=== PATIENT | female | born 1960 | race Caucasian/White ===

== ENCOUNTER 2016-08-16 23:13 | Emergency (ER) | payer OTHER ==
[~2016-08-16] VITALS: Ht 157.5 cm; Wt 70.0 kg
[~2016-08-16 23:13] MED LIST: CYCL-36 PO; NAPR-573 PO; NAPR250T57 PO; ONDA4TAB7 PO; SYMB80AE INH; VENTAER INH
[2016-08-16 23:16] VITALS: BP 169/109; PULSE 100; RESP 16; TEMP 97.9; O2SAT 96
[2016-08-16] MEDS ORDERED: RANITIDINE HCL 150 MG TAB PO ONE (23:45)
[2016-08-16] MEDS ORDERED: methylPREDNISolone SOD SUCC 125 MG/2 ML VIAL IV PUSH ONE (23:45)
[2016-08-16] MEDS ORDERED: diphenhydrAMINE HCL 50 MG/ML VIAL IV PUSH ONE (23:45)
[2016-08-16 23:50] VITALS: BP 160/103; PULSE 80; RESP 16; O2SAT 96
[2016-08-17] MEDS ORDERED: FAMOTIDINE 20 MG TAB PO ONE (00:15)
[2016-08-17] MEDS ORDERED: PRED50 PO (02:13)
--- NOTE | 2016-08-17 02:13 | PD ---
HPI Chief Complaint: Allergic/Adverse Reaction Time Seen by Provider: 23:29 Travel History International Travel<30 days: No Contact w/Intl Traveler<30days: No Traveled to known affect area: No History of Present Illness HPI Patient is a 55 year old female complaining of allergic reaction. She says she has hives all over and is very itchy. She denies any SOB or swelling of her lips , tongue or throat. She does not know what is causing the reaction as she has many allergies. She took two benadryl before coming in. PFSH Past Medical History Asthma: Yes (EXERCISED INDUCE ASTHMA) Atrial Fibrillation: Yes Anxiety: Yes Depression: Yes Cancer: No Cardiovascular Problems: Yes (MITRAL VALVE "LITTLE HOLD") High Cholesterol: Yes Diabetes: Yes (HYPOGLYCEMIA) Patient Takes Glucophage: No Diminished Hearing: No Endocrine: Yes Gastrointestinal Disorders: Yes (HEMMROIDS, COLONSCOPY) Genitourinary: Yes (CHRONIC CYCSTITIS) Immune Disorder: No Musculoskeletal: Yes (BACK PROBLEMS) Neurologic: No Psychiatric: Yes Reproductive: Yes Respiratory: Yes Immunizations Current: Yes Thyroid Disease: Yes (GOITER WITH PARTIAL THYROIDECTOMY) Ulcer: Yes (BLADDER) Tetanus Vaccination: < 5 Years Influenza Vaccination: No ?: Not Menopausal: Yes Dilation and Curettage (D&C): Yes Past Surgical History Hysterectomy: Yes Tonsillectomy: Yes Other Surgery: Yes (HALF THYROID / HEMORRHOIDECTOMY) Social History Alcohol Use: Yes (WINE 3-4 TIMES A WEEK) Tobacco Use: Yes (1.5 PPD) Substance Use: No Allergies-Medications (Allergen,Severity, Reaction): Coded Allergies: Ceftin (Verified Allergy, Severe, 08/16/16) Codeine (Verified Allergy, Severe, 08/16/16) Latex (Verified Allergy, Severe, 08/16/16) Lortab (Verified Allergy, Severe, 08/16/16) Tetracyclines (Verified Allergy, Severe, 08/16/16) Ultram (Verified Allergy, Severe, 08/16/16) Reported Meds & Prescriptions Reported Meds & Active Scripts Active Naprosyn (Naproxen) 250 Mg Tab 250 Mg PO BID 5 Days Flexeril (Cyclobenzaprine HCl) 10 Mg Tab 10 Mg PO TID PRN Ondansetron Odt (Ondansetron HCl) 4 Mg Tab 4 Mg PO Q6H PRN Ventolin Hfa (Albuterol Sulfate) 18 Gm Aero 2 Puff INH Q4HPRN Reported Naproxen 375 Mg Tab 375 Mg PO Q12 Symbicort (Budesonide/Formoterol Fumarate) 80 Mcg/4.5 Mcg Aer 2 Puff INH ONCE * SHAKE WELL BEFORE USE * Review of Systems General / Constitutional: No: Fever, Chills Eyes: No: Blurred Vision HENT: No: Headaches, Lightheadedness Cardiovascular: No: Chest Pain or Discomfort Respiratory: No: Shortness of Breath Gastrointestinal: No: Nausea, Vomiting Skin: Positive Rash, Positive Itching Neurologic: No: Weakness Physical Exam Narrative GENERAL: Awake and alert, in no acute distress SKIN: Warm and dry. urticaria covering most of the arms, legs, and trunk. HEAD: Atraumatic. Normocephalic. EYES: Pupils equal and round. No scleral icterus. ENT: Mucous membranes pink and moist. No pharyngeal swelling, no tongue swelling, no uvular swelling. NECK: Trachea midline. No JVD. CARDIOVASCULAR: Regular rate and rhythm. No murmur appreciated. RESPIRATORY: No accessory muscle use. Clear to auscultation. Breath sounds equal bilaterally. NEUROLOGICAL: Awake and alert. No obvious cranial nerve deficits. Motor grossly within normal limits. Normal speech. Data Data Last Documented VS Vital Signs Date Time Temp Pulse Resp B/P Pulse Ox O2 Delivery O2 Flow Rate FiO2 08/16/16 23:50 80 16 160/103 96 Room Air 08/16/16 23:16 97.9 Orders Iv Access Insert/Monitor (08/16/16 23:34) Diphenhydramine Inj (Benadryl Inj) (08/16/16 23:45) Methylprednisolone So Succ Inj (Solumedr (08/16/16 23:45) Famotidine (Pepcid) (08/17/16 00:15) MDM Medical Decision Making Medical Screen Exam Complete: Yes Emergency Medical Condition: Yes Differential Diagnosis allergic reaction vs dermatitis vs urticaria Narrative Course Patient is a 55 year old female who comes in complaining of allergic reaction. Exam shows hives over most of the body. There is no airway compromise. Patient given solumedrol, benadryl, zantac. Observed in the ED with improvement of symptoms. Discharged home with prescription for Prednisone. Advised to return to the ED as needed for any worsening symptoms, especially any airway issues. Diagnosis Primary Impression: Allergic reaction Qualified Code: T78.40XA - Allergic reaction, initial encounter Patient Instructions: General Allergic Reaction (ED), General Instructions Additional Instructions: Take the Prednisone for the next 3 days. Take Benadryl as needed for itching. Return to the ED as needed for any worsening symptoms. Scripts Prednisone 50 Mg Tab50 Mg PO DAILY #3 TAB Ref 0 Prov:Ellen Sheth MD 08/17/16 Disposition: 01 DISCHARGE HOME Condition: Stable Ellen Sheth MD Aug 17, 2016 02:13
[2016-08-17 03:10] VITALS: BP 131/81; PULSE 83; RESP 16; O2SAT 99
== END 2016-08-17 03:18 | disposition home or self-care (01) ==
LOC: NEPC 23:13
DX: T78.40XA Allergy, unspecified, initial encounter (principal)
CPT/HCPCS: 96374; 96375; 99283; J1200; J2930

== ENCOUNTER 2017-08-14 19:15 | Emergency (ER) | payer SELFPAY ==
[~2017-08-14] VITALS: Ht 172.7 cm; Wt 68.0 kg
[~2017-08-14 19:15] MED LIST changes: +PRED50 PO
[2017-08-14 19:16] VITALS: BP 160/104; PULSE 95; RESP 16; TEMP 98.7; O2SAT 97
--- NOTE | 2017-08-14 20:17 | RADRPT ---
EXAM DATE/TIME: 08/14/2017 20:03 [facility] COMPARISON: No previous studies available for comparison. INDICATIONS : Chest pain. MEDICAL HISTORY : A-fib. SURGICAL HISTORY : Coronary artery stent. ENCOUNTER: Initial ACUITY: 1 day PAIN SCORE: 9/10 LOCATION: middle chest. FINDINGS: PA and lateral views of the chest demonstrate the lungs to be symmetrically aerated without evidence of mass, infiltrate or effusion. The cardiomediastinal contours are unremarkable. Osseous structure s are intact. CONCLUSION: Normal examination. Rubio Yañez MD on August 14, 2017 at 20:14 Board Certified Radiologist. This report was verified electronically.
[2017-08-14 20:43] LABS: AUTOMATED NEUTROPHIL # 5.1 TH/MM3 (1.8-7.7); BASOPHIL % 0.6 % (0.0-2.0); EOSINOPHIL # 0.2 TH/MM3 (0-0.4); EOSINOPHIL % 1.9 % (0.0-4.0); HEMATOCRIT 47.6 % (35.0-46.0); HEMOGLOBIN 16.1 GM/DL (11.6-15.3); LYMPH % 29.3 % (9.0-44.0); LYMPHOCYTE # 2.5 TH/MM3 (1.0-4.8); MEAN CELL VOLUME 94.7 FL (80.0-100.0); MEAN CORPUSCULAR HGB CONC 33.8 % (32.0-36.0); MEAN PLATELET VOLUME 9.2 FL (7.0-11.0); MONO % 8.1 % (0.0-8.0); MONOCYTE # 0.7 TH/MM3 (0-0.9); NEUT % 60.1 % (16.0-70.0); PLATELET COUNT 325 TH/MM3 (150-450); RED BLOOD COUNT 5.02 MIL/MM3 (4.00-5.30); RED CELL DISTRIBUTION WIDTH 14.3 % (11.6-17.2); WHITE BLOOD COUNT 8.5 TH/MM3 (4.0-11.0)
[2017-08-14 21:02] LABS: PROTHROMBIN TIME - PATIENT 10.4 SEC (9.8-11.6)
[2017-08-14 21:03] LABS: AST (GOT) 17 U/L (15-37); BLOOD UREA NITROGEN 18 MG/DL (7-18); CALCIUM 9.1 MG/DL (8.5-10.1); CHLORIDE 104 MEQ/L (98-107); CREATININE 0.77 MG/DL (0.50-1.00); GLOMERULAR FILTRATION RATE 78 ML/MIN (>89); GLUCOSE,RANDOM 86 MG/DL (74-106); LIPASE 202 U/L (73-393); MAGNESIUM 2.1 MG/DL (1.5-2.5); SODIUM (NA) 139 MEQ/L (136-145)
[2017-08-14 21:08] LABS: ALKALINE PHOSPHATASE 68 U/L (45-117); ALT (GPT) 23 U/L (10-53); TOTAL BILIRUBIN ADULT 0.3 MG/DL (0.2-1.0); TOTAL PROTEIN 7.3 GM/DL (6.4-8.2); TROPONIN I LESS THAN 0.02 NG/ML (0.02-0.05)
[2017-08-14] MEDS ORDERED: NAPR250T4 PO (23:00)
[2017-08-14] MEDS ORDERED: NAPROXEN 500 MG TAB PO ONE (23:00)
[2017-08-14] MEDS ORDERED: CYCLOBENZAPRINE HCL 10 MG TAB PO ONE (23:00)
[2017-08-14] MEDS ORDERED: FEXO15TA PO (23:00)
[2017-08-15] MEDS ORDERED: NAPR500 PO (00:31)
[2017-08-15] MEDS ORDERED: CYCL10TA PO (00:31)
--- NOTE | 2017-08-15 00:32 | PD ---
HPI . Chest pain Chief Complaint: Chest Pain Time Seen by Provider: 22:48 Travel History International Travel<30 days: No Contact w/Intl Traveler<30days: No Traveled to known affect area: No History of Present Illness HPI 56-year-old female with a history of mitral valve prolapse complains of having intermittent chest pain lasting for several seconds at time describes a stabbing pain in the middle of her chest which radiates around both sides to the back expiration catch her breath happens several times per day has been happening more of late. Patient notes that she is under significant stress, her sister just over the holidays, and she has a very difficult loss at work. Patient also states she is not sleeping well at night notes depression, however.denies suicidal ideations or homicidal ideations. Patient denies any change in exercise tolerance any recent leg pain and leg swelling sedentary. Her confined travel. Patient denies any fever, cough or chills. PFSH Past Medical History Narrative Medical Past medical history reviewed Asthma: Yes (EXERCISED INDUCE ASTHMA) Atrial Fibrillation: Yes Anxiety: Yes Depression: Yes Cancer: No Cardiovascular Problems: Yes (MITRAL VALVE "LITTLE HOLD") High Cholesterol: Yes Diabetes: Yes (HYPOGLYCEMIA) Patient Takes Glucophage: No Diminished Hearing: No Endocrine: Yes Gastrointestinal Disorders: Yes (HEMMROIDS, COLONSCOPY) Genitourinary: Yes (CHRONIC CYCSTITIS) Immune Disorder: No Musculoskeletal: Yes (BACK PROBLEMS) Neurologic: No Psychiatric: Yes Reproductive: Yes Respiratory: Yes Immunizations Current: Yes Thyroid Disease: Yes (GOITER WITH PARTIAL THYROIDECTOMY) Ulcer: Yes (BLADDER) Tetanus Vaccination: Unknown Influenza Vaccination: No ?: Not Menopausal: Yes Dilation and Curettage (D&C): Yes Past Surgical History Hysterectomy: Yes Tonsillectomy: Yes Other Surgery: Yes (HALF THYROID / HEMORRHOIDECTOMY) Social History Alcohol Use: Yes (WINE 3-4 TIMES A WEEK) Tobacco Use: Yes (1.5 PPD) Substance Use: No Allergies-Medications (Allergen,Severity, Reaction): Coded Allergies: acetaminophen (Unverified Allergy, Severe, 08/14/17) cefuroxime (Unverified Allergy, Severe, 08/14/17) codeine (Unverified Allergy, Severe, 08/14/17) doxycycline (Unverified Allergy, Severe, 08/14/17) hydrocodone (Unverified Allergy, Severe, 08/14/17) latex (Unverified Allergy, Severe, 08/14/17) minocycline (Unverified Allergy, Severe, 08/14/17) tigecycline (Unverified Allergy, Severe, 08/14/17) tramadol (Unverified Allergy, Severe, 08/14/17) Reported Meds & Prescriptions Reported Meds & Active Scripts Active Reported Naproxen 250 Mg Tab 250 Mg PO BID Tonya Allergy (Fexofenadine HCl) 180 Mg Tab 180 Mg PO DAILY Narrative Medication Allergies and medications reviewed Review of Systems Except as stated in HPI: all other systems reviewed are Neg General / Constitutional: No: Fever Eyes: No: Visual changes HENT: No: Headaches Cardiovascular: Positive: Chest Pain or Discomfort Respiratory: No: Shortness of Breath Gastrointestinal: No: Abdominal Pain Genitourinary: No: Dysuria Musculoskeletal: No: Pain Skin: No Rash Neurologic: No: Weakness Psychiatric: Positive: Anxiety, Depression, No: Suicidal Ideations, Disorder of Thought, Mood Disorder, Substance Abuse, Homicidal Ideation Endocrine: No: Polydipsia Hematologic/Lymphatic: No: Easy Bruising Physical Exam Narrative GENERAL: Awake alert oriented 3 no acute distress SKIN: Warm and dry. Color is normal no diaphoresis cyanosis or pallor HEAD: Atraumatic. Normocephalic. EYES: Pupils equal and round. No scleral icterus. No injection or drainage. ENT: No nasal bleeding or discharge. Mucous membranes pink and moist. NECK: Trachea midline. No JVD. Supple full range of motion CARDIOVASCULAR: Regular rate and rhythm. S1-S2 no murmurs or gallops RESPIRATORY: No accessory muscle use. Clear to auscultation. Breath sounds equal bilaterally. Chest wall nontender GASTROINTESTINAL: Abdomen soft, non-tender, nondistended. Hepatic and splenic margins not palpable. MUSCULOSKELETAL: Extremities without clubbing, cyanosis, or edema. No obvious deformities. NEUROLOGICAL: Awake and alert. No obvious cranial nerve deficits. Motor grossly within normal limits. Five out of 5 muscle strength in the arms and legs. Normal speech. PSYCHIATRIC: Appropriate mood and affect; insight and judgment normal. Data Data Last Documented VS Vital Signs Date Time Temp Pulse Resp B/P (MAP) Pulse Ox O2 Delivery O2 Flow Rate FiO2 08/14/17 19:16 98.7 95 16 160/104 (122) 97 Room Air Orders Orders Electrocardiogram (08/14/17 19:43) Ckmb (Isoenzyme) Profile (08/14/17 19:43) Complete Blood Count With Diff (08/14/17 19:43) Comprehensive Metabolic Panel (08/14/17 19:43) Magnesium (Mg) (08/14/17 19:43) Prothrombin Time / Inr (Pt) (08/14/17 19:43) Act Partial Throm Time (Ptt) (08/14/17 19:43) Troponin I (08/14/17 19:43) Lipase (08/14/17 19:43) Chest, Pa & Lat (08/14/17 19:43) Troponin I (08/14/17 22:59) Cyclobenzaprine (Flexeril) (08/14/17 23:00) Naproxen (Naprosyn) (08/14/17 23:00) Labs Laboratory Tests Test 08/14/17 20:17 08/14/17 23:15 White Blood Count 8.5 TH/MM3 Red Blood Count 5.02 MIL/MM3 Hemoglobin 16.1 GM/DL Hematocrit 47.6 % Mean Corpuscular Volume 94.7 FL Mean Corpuscular Hemoglobin 32.0 PG Mean Corpuscular Hemoglobin Concent 33.8 % Red Cell Distribution Width 14.3 % Platelet Count 325 TH/MM3 Mean Platelet Volume 9.2 FL Neutrophils (%) (Auto) 60.1 % Lymphocytes (%) (Auto) 29.3 % Monocytes (%) (Auto) 8.1 % Eosinophils (%) (Auto) 1.9 % Basophils (%) (Auto) 0.6 % Neutrophils # (Auto) 5.1 TH/MM3 Lymphocytes # (Auto) 2.5 TH/MM3 Monocytes # (Auto) 0.7 TH/MM3 Eosinophils # (Auto) 0.2 TH/MM3 Basophils # (Auto) 0.0 TH/MM3 CBC Comment DIFF FINAL Differential Comment Prothrombin Time 10.4 SEC Prothromb Time International Ratio 1.0 RATIO Activated Partial Thromboplast Time 24.5 SEC Blood Urea Nitrogen 18 MG/DL Creatinine 0.77 MG/DL Random Glucose 86 MG/DL Total Protein 7.3 GM/DL Albumin 4.0 GM/DL Calcium Level 9.1 MG/DL Magnesium Level 2.1 MG/DL Alkaline Phosphatase 68 U/L Aspartate Amino Transf (AST/SGOT) 17 U/L Alanine Aminotransferase (ALT/SGPT) 23 U/L Total Bilirubin 0.3 MG/DL Sodium Level 139 MEQ/L Potassium Level 3.8 MEQ/L Chloride Level 104 MEQ/L Carbon Dioxide Level 27.0 MEQ/L Anion Gap 8 MEQ/L Estimat Glomerular Filtration Rate 78 ML/MIN Total Creatine Kinase 43 U/L Troponin I LESS THAN 0.02 NG/ML LESS THAN 0.02 NG/ML Lipase 202 U/L [facility] Medical Decision Making Medical Screen Exam Complete: Yes Emergency Medical Condition: Yes Medical Record Reviewed: Yes Differential Diagnosis Atypical chest pain, symptomatically PVCs, mitral valve prolapse, anxiety and depression Narrative Course EKG normal sinus rhythm at 81 bpm nonischemic Allergies examination reviewed, patient's cardiac enzymes 0 and 3 hours negative. Patiently markedly improved with Naprosyn and muscle relaxants, similar treatment regimen for patient at home for this type of pain. Diagnosis Primary Impression: Chest pain Qualified Codes: R07.2 - Precordial pain Additional Impression: Anxiety in acute stress reaction Patient Instructions: Anxiety (ED), Chest Pain (ED), General Instructions Additional Instructions: Take Naprosyn 5 mg twice daily as needed for discomfort. Flexeril 10 mg every 8 hours as needed for muscle relaxation. Follow-up with your doctor. Return for worsening Scripts Cyclobenzaprine (Flexeril) 10 Mg Tab 10 MG PO TID for Muscle Spasm, #30 TAB 0 Refills Prov: Chetan Sheridan MD 08/15/17 Naproxen (Naprosyn) 500 Mg Tab 250 MG PO BID, #20 TAB 0 Refills Prov: Chetan Sheridan MD 08/15/17 Disposition: 01 DISCHARGE HOME Condition: Stable Chetan Sheridan MD Aug 15, 2017 00:32
[2017-08-15 00:43] VITALS: BP 142/66; PULSE 88; RESP 16; TEMP 98; O2SAT 97
--- NOTE | 2017-08-15 21:09 | EKG ---
Date Performed: 08/14/2017 Time Performed: 20:29:01 PTAGE: 56 years EKG: Sinus rhythm POSSIBLE LEFT ATRIAL ENLARGEMENT POSSIBLE RIGHT VENTRICULAR CONDUCTION DELAY BORDERLINE ECG PREVIOUS TRACING : 02/25/2016 13.17 SINCE PRIOR TRACING NO SIGNIFICANT CAHNGE NOTED DOCTOR: Daniela Norton Interpretating Date/Time 08/15/2017 21:08:27
== END 2017-08-15 00:42 | disposition home or self-care (01) ==
LOC: NEPC 19:15
DX: R07.2 Precordial pain (principal); F41.8 Other specified anxiety disorders; F43.0 Acute stress reaction; E11.649 Type 2 diabetes mellitus with hypoglycemia without coma; F17.210 Nicotine dependence, cigarettes, uncomplicated
CPT/HCPCS: 71046; 80053; 82550; 83690; 83735; 84484; 85025; 85610; 85730; 93005; 99285

== ENCOUNTER 2017-11-11 17:59 | Emergency (ER) | payer SELFPAY ==
[~2017-11-11] VITALS: Ht 157.5 cm; Wt 61.4 kg
[~2017-11-11 17:59] MED LIST changes: -CYCL-36 PO; +CYCL10TA PO; +FEXO15TA PO; -NAPR-573 PO; +NAPR250T4 PO; -NAPR250T57 PO; +NAPR500 PO; -ONDA4TAB7 PO; -PRED50 PO; -SYMB80AE INH; -VENTAER INH
[2017-11-11 18:11] VITALS: BP 204/110; PULSE 103; RESP 20; TEMP 98.6; O2SAT 97
--- NOTE | 2017-11-14 11:35 | PD ---
Physical Exam Date Seen by Provider: Nov 11, 2017 Time Seen by Provider: 18:11 Narrative 56-year-old female presents to the emergency department for evaluation of dan to her face around her bilateral eyes. She states that she had small cuts to her face and wiped her eyes and face with peroxide 2 weeks ago. She also states that she is having worsening eye infection to her bilateral eyes despite using a bottle antibiotic drops. Current pain is 5/10. Moderate severity. Data Data Last Documented VS Vital Signs Date Time Temp Pulse Resp B/P (MAP) Pulse Ox O2 Delivery O2 Flow Rate FiO2 11/11/17 18:11 98.6 103 20 204/110 (141) 97 MDM Supervised Visit with ASHVIN: No Narrative Course 56-year-old female presents to the emergency department for evaluation of bilateral eye infection and peroxide dan to her face. Patient initially seen in triage. She left AGAINST MEDICAL ADVICE before she can be moved to medical bed. Diagnosis Primary Impression: Left against medical advice Patient Instructions: General Instructions Departure Forms: Tests/Procedures Disposition: 07 AGAINST MEDICAL ADVICE Johanne Wilcox Nov 14, 2017 11:35
== END 2017-11-12 01:07 | disposition left against medical advice (07) ==
LOC: NED 17:59
DX: T49.0X1A Poisoning by local antifungal, anti-infective and anti-inflammatory drugs, accidental (unintentional), initial encounter (principal); T20.40XA Corrosion of unspecified degree of head, face, and neck, unspecified site, initial encounter
CPT/HCPCS: 99281